=== PATIENT | male | born 1965 | race Caucasian/White ===

== ENCOUNTER → 2016-10-13 | Outpatient (CLI) | payer BC ==
--- NOTE | 2016-10-13 17:46 | DX ---
Cervical spine AP lateral 0849 hours. History: Followup fusion. Findings: Comparison to October 26, 2010. Anterior cervical fusion plate is once again seen from C5 to C7 with partial corpectomy of C6. Disk r eplacement material is in stable position. There is stable mild intervertebral disk space narrowing a t C4-C5. Remainder the disk spaces are relatively normal. Mild right-sided facet hypertrophy is suspe cted at C4-C5. Impression: 1. Stable alignment anterior cervical fusion from C5 to C7. 2. Mild stable disk space narrowing at C4-C5.
== END ==
LOC: FIMAGING 08:18
PROVIDERS: ATTEND Orthopaedic Surgery Orthopaedic Surgery of the Spine
DX: Z09 Encounter for follow-up examination after completed treatment for conditions other than malignant neoplasm (principal); Z98.1 Arthrodesis status; M50.321 Other cervical disc degeneration at C4-C5 level

== ENCOUNTER → 2016-12-28 | Outpatient (CLI) | payer BC | LOC: FIMAGING 08:38 | PROVIDERS: ATTEND Orthopaedic Surgery Orthopaedic Surgery of the Spine | DX: Z09 Encounter for follow-up examination after completed treatment for conditions other than malignant neoplasm (principal); Z98.1 Arthrodesis status ==

== ENCOUNTER → 2017-03-03 | Outpatient (CLI) | payer BC | LOC: FIMAGING 08:31 | PROVIDERS: ATTEND Orthopaedic Surgery Orthopaedic Surgery of the Spine | DX: Z98.1 Arthrodesis status (principal) ==

== ENCOUNTER → 2017-06-09 | Outpatient (CLI) | payer BC | LOC: FIMAGING 08:02 | PROVIDERS: ATTEND Orthopaedic Surgery Orthopaedic Surgery of the Spine | DX: Z09 Encounter for follow-up examination after completed treatment for conditions other than malignant neoplasm (principal); Z98.1 Arthrodesis status ==